=== PATIENT | female | born 1955 | race Caucasian/White ===

== ENCOUNTER 2022-05-03 19:08 | Emergency (ER) | payer OTHER ==
--- NOTE | 2022-05-03 19:21 | ERPHSYRPT ---
- History of Present Illness Time Seen by Provider: 05/03/22 19:21 Source: patient Physician History: This 66-year-old white female patient who has a history of hypertension hyperlipidemia and is not diabetic but suffered both cat scratches and cat bites prior to arrival. It was her own home cat. She is concerned because the sites were showing evidence of welts. She wants to be placed on antibiotics. Quality: burning, painful Severity: mild Location: hands (Bilateral), extremities (Bilateral wrists and proximal forearms) Possible Causes: other (Cat bites and scratches) Allergies/Adverse Reactions: No Known Drug Allergies Allergy (Verified 05/03/22 19:14) Home Medications: Citalopram Hydrobromide [Celexa] 40 mg PO DAILY 02/16/12 [History] Clonidine HCl 0.1 mg [Clonidine 0.1 mg Tablet] 0.1 mg PO BID 05/03/22 [History] Fluticasone/Umeclidin/Vilanter [Trelegy Ellipta 100-62.5-25] 1 puff IH DAILY 05/03/22 [History] Lansoprazole 15 mg PO DAILY 05/03/22 [History] Simvastatin 20Mg [Zocor 20Mg] 20 mg PO DAILY 05/03/22 [History] Zinc Gluconate [Zinc] 50 mg PO DAILY 05/03/22 [History] Hx Tetanus, Diphtheria Vaccination/Date Given: Yes Hx Influenza Vaccination/Date Given: Yes Hx Pneumococcal Vaccination/Date Given: No Travel Risk - International Travel Have you traveled outside of the country in past 3 weeks: No - Coronavirus Screening Are you exhibiting any of the following symptoms?: No Close contact with a COVID-19 positive Pt in past 14-21 Days: No - Review of Systems Constitutional: No Symptoms Eyes: No Symptoms Ears, Nose, & Throat: No Symptoms Respiratory: No Symptoms Cardiac: No Symptoms Abdominal/Gastrointestinal: No Symptoms Genitourinary Symptoms: No Symptoms Musculoskeletal: No Symptoms Skin: Other (Bilateral hands wrist and forearm cat scratches and cat bites) Neurological: No Symptoms Psychological: No Symptoms Endocrine: No Symptoms Hematologic/Lymphatic: No Symptoms Immunological/Allergic: No Symptoms All Other Systems: Reviewed and Negative - Past Medical History Pertinent Past Medical History: Yes Neurological History: No Pertinent History ENT History: No Pertinent History Cardiac History: High Cholesterol, Hypertension Respiratory History: Other Endocrine Medical History: No Pertinent History Musculoskeletal History: No Pertinent History GI Medical History: Gallbladder Disease History: No Pertinent History Psycho-Social History: Anxiety Female Reproductive Disorders: No Pertinent History - Past Surgical History Past Surgical History: Yes Neuro Surgical History: No Pertinent History Cardiac: No Pertinent History Respiratory: Other Gastrointestinal: Cholecystectomy Genitourinary: No Pertinent History Musculoskeletal: No Pertinent History Female Surgical History: Tubal Ligation Other Surgical History: right lobectomy, tubal, gallbladder - Social History Smoking Status: Former smoker How long have you smoked: 10yrs Exposure to second hand smoke: No Alcohol Use: Socially Drug Use: none Patient Lives Alone: No Significant Family History: hypertension - Nursing Vital Signs Nursing Vital Signs: Initial Vital Signs Temperature 97.4 F 05/03/22 19:18 Pulse Rate 73 05/03/22 19:18 Respiratory Rate 18 05/03/22 19:18 Blood Pressure 215/102 05/03/22 19:18 O2 Sat by Pulse Oximetry 100 05/03/22 19:18 Pain Scale Pain Intensity 3 - Physical Exam General Appearance: no apparent distress, alert, anxiety Eye Exam: PERRL/EOMI, eyes nml inspection Ears, Nose, Throat Exam: normal ENT inspection, moist mucous membranes Neck Exam: normal inspection, non-tender, supple, full range of motion Respiratory Exam: normal breath sounds, lungs clear, airway intact, No chest tenderness, No respiratory distress Cardiovascular Exam: regular rate/rhythm, normal heart sounds, normal peripheral pulses Gastrointestinal/Abdomen Exam: soft, normal bowel sounds, No tenderness Pelvic Exam: not done Rectal Exam: not done Extremity Exam: normal inspection, normal range of motion, pelvis stable Neurologic Exam: alert, oriented x 3, cooperative, 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 No active bleeding) Lymphatic Exam: No adenopathy SpO2 Interpretation: normal O2 Delivery: Room Air - Progress Progress: unchanged Counseled pt/family regarding: diagnosis, need for follow-up - Departure Departure Disposition: Home Clinical Impression: Cat scratch of hand, Cat scratch of forearm, Cat bite of multiple sites of hand and wrist Condition: Stable Critical Care Time: No Referrals: [facility] LAWS NP [Primary Care Provider] - Follow up/PCP as directed Additional Instructions: Do not use ointments or lotions. Keep the sites clean washing them 2 times a day with soap and water. Take your antibiotics with food. Follow-up with your primary care physician for further evaluation management. Prescriptions: Amoxicillin/Potassium Clav [Augmentin 500-125 Tablet] 1 each PO TID #15 tablet Ciprofloxacin [Cipro 500 MG] 500 mg PO BID #10 tablet
[2022-05-03 19:31] VITALS: O2SAT 100
[2022-05-03] MEDS ORDERED: Augmentin 500-125 Tablet PO ONE (19:48)
[2022-05-03] MEDS ORDERED: Levofloxacin 500 MG Tablet PO ONE (19:48)
[2022-05-03] MEDS ORDERED: Adacel Vial IM ONE ×2 (19:53→19:57)
[2022-05-03] MEDS ORDERED: Levofloxacin 500 MG Tablet ONE (19:56)
[2022-05-03] MEDS ORDERED: Augmentin 500-125 Tablet ONE (19:56)
[2022-05-03 20:13] VITALS: BP 189/98; PULSE 68
== END 2022-05-03 20:14 | disposition home or self-care (01) ==
LOC: ED 19:08
DX: S60.572A Other superficial bite of hand of left hand, initial encounter (principal); S60.571A Other superficial bite of hand of right hand, initial encounter; S60.872A Other superficial bite of left wrist, initial encounter; S60.871A Other superficial bite of right wrist, initial encounter; W55.01XA Bitten by cat, initial encounter; S60.512A Abrasion of left hand, initial encounter; S60.511A Abrasion of right hand, initial encounter; S50.812A Abrasion of left forearm, initial encounter; S50.811A Abrasion of right forearm, initial encounter; W55.03XA Scratched by cat, initial encounter; I10 Essential (primary) hypertension; E78.5 Hyperlipidemia, unspecified; Z79.899 Other long term (current) drug therapy
CPT/HCPCS: 90471; 90715; 99282; A9270-GY

== ENCOUNTER 2023-03-09 09:45 | Emergency (ER) | payer MEDICARE ==
--- NOTE | 2023-03-09 09:51 | ERPHSYRPT ---
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 The "flu" has been traveling throughout the their home and family members. Patient has been coughing but not a tremendous amount. She was having body aches and pains and yesterday did take 4 doses of regular strength aspirin which she does not normally take. However when she was coughing yesterday and again today she noticed blood in her sputum. She has no bleeding disorders. She denies clotting disorders. She has no liver disease. Patient denies chest pain. Patient has a history of hypertension, hyperlipidemia, gastroesophageal reflux disease, depression, anxiety. She has not had any vomiting or diarrhea. She denies abdominal pain. Patient has had a right lung upper lobectomy in the past secondary to an empyema. Timing/Duration: week(s) (1 to 2 weeks), intermittent, worse Cough Quality/Degree: mild, blood streaked sputum Possible Cause: no prior episodes Modifying Factors: Improves With: nothing, coughing Associated Symptoms: cough, sore throat, No chest pain/soreness, No shortness of breath Allergies/Adverse Reactions: No Known Drug Allergies Allergy (Verified 03/09/23 10:05) Home Medications: Citalopram Hydrobromide [Celexa] 40 mg PO DAILY 02/16/12 [History] Clonidine HCl 0.1 mg [Clonidine 0.1 mg Tablet] 0.1 mg PO BID 05/03/22 [History] Fluticasone/Umeclidin/Vilanter [Trelegy Ellipta 100-62.5-25] 1 puff IH DAILY 05/03/22 [History] Lansoprazole 15 mg PO DAILY 05/03/22 [History] Simvastatin 20Mg [Zocor 20Mg] 20 mg PO DAILY 05/03/22 [History] Zinc Gluconate [Zinc] 50 mg PO DAILY 05/03/22 [History] Hx Tetanus, Diphtheria Vaccination/Date Given: Yes Hx Influenza Vaccination/Date Given: Yes Hx Pneumococcal Vaccination/Date Given: No Travel Risk - International Travel Have you traveled outside of the country in past 3 weeks: No - Coronavirus Screening Are you exhibiting any of the following symptoms?: Yes Symptoms: Cough: New Onset, Headaches/Body Aches/Fatigue Close contact with a COVID-19 positive Pt in past 14-21 Days: No - Vaccine Status Have you recieved a Covid-19 vaccination: Yes 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[employer] - Vaccination Dates Date of 2cond Vaccination (if applicable): 2019 - Review of Systems Constitutional: No Symptoms Eyes: No Symptoms Ears, Nose, & Throat: No Symptoms, Throat Pain Respiratory: Cough Cardiac: No Symptoms Abdominal/Gastrointestinal: No Symptoms Genitourinary Symptoms: No Symptoms Musculoskeletal: Arthralgias, Myalgias Skin: No Symptoms Neurological: No Symptoms Psychological: No Symptoms Endocrine: No Symptoms Hematologic/Lymphatic: No Symptoms Immunological/Allergic: No Symptoms All Other Systems: Reviewed and Negative - Past Medical History Pertinent Past Medical History: Yes Neurological History: No Pertinent History ENT History: No Pertinent History Cardiac History: High Cholesterol, Hypertension Respiratory History: Other Endocrine Medical History: No Pertinent History Musculoskeletal History: No Pertinent History GI Medical History: Gallbladder Disease History: No Pertinent History Psycho-Social History: Anxiety Female Reproductive Disorders: No Pertinent History - Past Surgical History Past Surgical History: Yes Neuro Surgical History: No Pertinent History Cardiac: No Pertinent History Respiratory: Other Gastrointestinal: Cholecystectomy Genitourinary: No Pertinent History Musculoskeletal: No Pertinent History Female Surgical History: Tubal Ligation Other Surgical History: right lobectomy, tubal, gallbladder - Social History Smoking Status: Former smoker How long have you smoked: 10yrs Exposure to second hand smoke: No Alcohol Use: Socially Drug Use: none Patient Lives Alone: No Significant Family History: hypertension - Nursing Vital Signs Nursing Vital Signs: Initial Vital Signs Temperature 98.3 F 03/09/23 10:05 Pulse Rate 85 03/09/23 10:05 Respiratory Rate 18 03/09/23 10:05 Blood Pressure 144/79 03/09/23 10:05 O2 Sat by Pulse Oximetry 94 L 03/09/23 10:05 Pain Scale Pain Intensity 0 - Physical Exam General Appearance: no apparent distress, alert, anxiety Eye Exam: PERRL/EOMI, eyes nml inspection Ears, Nose, Throat Exam: normal ENT inspection, moist mucous membranes Neck Exam: normal inspection, non-tender, supple, full range of motion Respiratory Exam: normal breath sounds, lungs clear, airway intact, No chest tenderness, No respiratory distress Cardiovascular Exam: regular rate/rhythm, normal heart sounds, normal peripheral pulses Gastrointestinal/Abdomen Exam: soft, normal bowel sounds, No tenderness Pelvic Exam: not done Rectal Exam: not done Back Exam: normal inspection Extremity Exam: normal inspection, normal range of motion, pelvis stable Neurologic Exam: alert, oriented x 3, cooperative, deckhand 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 II-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 nml as tested, normal mood/affect, nml cerebellar function, nml station & gait, sensation nml Skin Exam: normal color, warm, dry Lymphatic Exam: No adenopathy SpO2 Interpretation: normal O2 Delivery: Room Air - Course Nursing assessment & vital signs reviewed: Yes Ordered Tests: Active Orders 24 hr Category Date Time Status CHEST 1 VIEW (PORTABLE) Stat Exams 03/09/23 10:19 Completed CHEST WITH CONTRAST [CT] Stat Exams 03/09/23 11:12 Completed BMP Stat Lab 03/09/23 10:30 Completed CBC W DIFF Stat Lab 03/09/23 10:30 Completed D-DIMER QUANTITATIVE Stat Lab 03/09/23 10:30 Completed Manual Differential NC Stat Lab 03/09/23 10:30 Completed PROTIME WITH INR Stat Lab 03/09/23 10:30 Completed Medication Summary Discontinued Medications Generic Name Dose Route Start Last Admin Trade Name Freq PRN Reason Stop Dose Admin Sodium Chloride 500 mls @ 500 mls/hr 03/09/23 11:12 03/09/23 12:32 Sodium Chloride 0.9% 500 Ml IV 03/09/23 12:11 Infused .Q1H ONE Infusion Sodium Chloride Confirm 03/09/23 11:27 Sodium Chloride 0.9% 500 Ml Administered 03/09/23 11:28 Dose 500 mls @ ud IV .STK-MED ONE Ceftriaxone Sodium/Dextrose 1 g in 50 mls @ 100 mls/hr 03/09/23 11:44 03/09/23 12:32 Rocephin 1 Gm-D5w 50 Ml Bag IV 03/09/23 12:13 Infused STAT STA Infusion Ceftriaxone Sodium/Dextrose Confirm 03/09/23 12:00 Rocephin 1 Gm-D5w 50 Ml Bag Administered 03/09/23 12:01 Dose 1 g in 50 mls @ ud IV .STK-MED ONE Lab/Rad Data: Laboratory Result Diagrams 03/09/23 10:30 03/09/23 10:30 Laboratory Results 03/09/23 03/09/23 03/09/23 Range/Units 11:08 10:30 10:30 WBC (4.0-10.5) x10^3/uL RBC (4.1-5.4) x10^6/uL Hgb (12.0-16.0) g/dL Hct (35-47) % MCV (78-100) fL MCH (26-32) pg MCHC (32-36) g/dL RDW (11.5-14.0) % Plt Count (150-450) x10^3/uL MPV (7.5-11.0) fL Segmented Neutrophils (36.0-66.0) % Lymphocytes (Manual) (24-44) % Toxic Granulation Platelet Estimate (NORMAL) RBC Morphology PT 10.6 (9.4-12.5) SECONDS INR 0.97 (0.8-3.0) D-Dimer 0.90 H* (0.0-0.50) mg/L Sodium (137-145) mmol/L Potassium (3.5-5.1) mmol/L Chloride (98-107) mmol/L Carbon Dioxide (22-30) mmol/L Anion Gap (5-15) MEQ/L BUN (7-17) mg/dL Creatinine (0.52-1.04) mg/dL Estimated GFR ML/MIN Glucose (74-106) mg/dL Calcium (8.4-10.2) mg/dL Influenza Type A Ag NEGATIVE (NEGATIVE) Influenza Type B Ag NEGATIVE (NEGATIVE) RSV (PCR) NEGATIVE (NEGATIVE) SARS-CoV-2 (PCR) NEGATIVE (NEGATIVE) Group A Strep Antibody NOT DETECTED (NEGATIVE) 03/09/23 03/09/23 Range/Units 10:30 10:30 WBC 12.4 H (4.0-10.5) x10^3/uL RBC 3.96 L (4.1-5.4) x10^6/uL Hgb 12.4 (12.0-16.0) g/dL Hct 37.3 (35-47) % MCV 94.2 (78-100) fL MCH 31.3 (26-32) pg MCHC 33.2 (32-36) g/dL RDW 13.1 (11.5-14.0) % Plt Count 222 (150-450) x10^3/uL MPV 10.4 (7.5-11.0) fL Segmented Neutrophils 93 H (36.0-66.0) % Lymphocytes (Manual) 7 L (24-44) % Toxic Granulation 1+ Platelet Estimate NORMAL (NORMAL) RBC Morphology NORMAL PT (9.4-12.5) SECONDS INR (0.8-3.0) D-Dimer (0.0-0.50) mg/L Sodium 133 L (137-145) mmol/L Potassium 3.7 (3.5-5.1) mmol/L Chloride 104 (98-107) mmol/L Carbon Dioxide 18 L (22-30) mmol/L Anion Gap 15.0 (5-15) MEQ/L BUN 14 (7-17) mg/dL Creatinine 0.56 (0.52-1.04) mg/dL Estimated GFR 101.2 ML/MIN Glucose 119 H (74-106) mg/dL Calcium 9.3 (8.4-10.2) mg/dL Influenza Type A Ag (NEGATIVE) Influenza Type B Ag (NEGATIVE) RSV (PCR) (NEGATIVE) SARS-CoV-2 (PCR) (NEGATIVE) Group A Strep Antibody (NEGATIVE) - Progress Progress: improved, re-examined Air Movement: good Progress Note: 03/09/23 11:00 This patient's medical issue is 1 of moderate complexity. The level complex in the work-up performed is based on review of the patient's past medical history, review the patient's medication list, review of the patient's drug allergy list, history of present illness and physical findings on examination. Work-up in this patient includes chest x-ray, viral swabs, group A strep test, CBC, CMP, PT/INR and D-dimer test. 03/09/23 12:45 I reviewed and interpreted this patient's laboratory test results. Patient's D- dimer was elevated and because of her cough and hemoptysis and mild shortness of breath, we ordered a CT scan of the chest with contrast. Chest x-ray was interpreted by the radiologist and I reviewed the impression. There is stable right lung postsurgical changes. There is new left base infiltrate/atelectasis without consolidation or large effusion. CT scan of the chest with contrast was interpreted by the radiologist and I reviewed the impression. There is no evidence of pulmonary embolism. There is new left lower lobe consolidation/airspace disease. There is chronic right- sided postsurgical changes. Blood Culture(s) Obtained: Yes Antibiotics given: Yes Counseled pt/family regarding: lab results, diagnosis, need for follow-up, rad results Medical Desision Making - Diagnostic Testing Diagnostic test were ordered, analyzed, and reviewed by me: Yes Radiological Interpretation: Reviewed by me, Teleradiologist Report - Risk of complications The pt has a mod risk of morbidity or mortality based on: Need for prescription drug management - Departure Departure Disposition: Home Clinical Impression: Left lower lobe pneumonia Condition: Stable Critical Care Time: No Referrals: [facility] LAWS NP [Primary Care Provider] - Follow up/PCP as directed Additional Instructions: Take your medication as prescribed Follow-up with your primary care provider today, 03/09/2023, to obtain a follow-up appointment and further evaluation management in the next 3 to 5 days. Prescriptions: Prednisone 10 mg [Deltasone 10 mg] 10 mg PO TID #12 tablet Albuterol 8 gm Mdi Hfa [Ventolin Hfa MDI] 8 gm IH Q4H #1 unit Azithromycin 250 mg [Zithromax 250 MG TABLET] 250 mg PO ZPACK #6 tablet
[2023-03-09 10:16] VITALS: BP 144/79; TEMP 98.3
[2023-03-09 10:36] LABS: Hematocrit 37.3 % (35-47); Hemoglobin 12.4 g/dL (12.0-16.0); Mean Cell Volume 94.2 fL (78-100); Mean Corpuscular Hemoglobin 31.3 pg (26-32); Mean Corpuscular Hgb Concent. 33.2 g/dL (32-36); Mean Platelet Volume 10.4 fL (7.5-11.0); Platelet Count 222 x10^3/uL (150-450); Red Blood Count 3.96 x10^6/uL (4.1-5.4); Red Cell Distribution Width 13.1 % (11.5-14.0); White Blood Count 12.4 x10^3/uL (4.0-10.5)
--- NOTE | 2023-03-09 10:51 | XRAY ---
Indication: Hemoptysis. Comparison: April 23, 2021. Portable chest demonstrates stable right lung postsurgical changes with right lung volume loss. New left base infiltrate/atelectasis without consolidation/large effusion. Heart not enlarged. Bony thorax intact again with osteopenia and mild degenerative changes.
[2023-03-09 10:52] LABS: Calcium 9.3 mg/dL (8.4-10.2); Creatinine 1 0.56 mg/dL (0.52-1.04); EST GLOMERULAR FILTRATION RATE 101.2 ML/MIN; Potassium 3.7 mmol/L (3.5-5.1)
[2023-03-09 11:01] LABS: INR 0.97 (0.8-3.0); Lymphocytes 7 % (24-44); Neutrophils 93 % (36.0-66.0); PROTIME 10.6 SECONDS (9.4-12.5); Platelet Estimate NORMAL (NORMAL); Total Cells Counted 100; Toxic Granulation 1+
[2023-03-09 11:03] LABS: D-DIMER QUANTITATIVE 0.9 mg/L (0.0-0.50)
[2023-03-09 11:12] LABS: INFLUENZA A NEGATIVE (NEGATIVE); INFLUENZA B NEGATIVE (NEGATIVE); RESPIRATORY SYNCTIAL VIRUS NEGATIVE (NEGATIVE); SARS-CoV-2 Xpert Express NEGATIVE (NEGATIVE)
[2023-03-09] MEDS: Sodium Chloride 0.9% 500 ML 500 ML IV ONE (11:27)
[2023-03-09] MEDS ORDERED: Sodium Chloride 0.9% 500 ML 500 ML IV ONE (11:27)
[2023-03-09] MEDS ORDERED: ROCEPHIN 1 Gm-D5w 50 ml Bag** 1 G/50 ML IVPB IV ONE (12:00)
[2023-03-09] MEDS: ROCEPHIN 1 Gm-D5w 50 ml Bag** 1 G/50 ML IVPB IV STA (12:01)
--- NOTE | 2023-03-09 12:33 | XRAY ---
Indication: Hemoptysis. Elevated d-dimer. Partial right resection. Multiple contiguous images obtained through the chest using 100 cc Isovue 370 contrast and PE protocol. Comparison: CT chest without contrast February 05, 2022. Good opacification of the pulmonary arteries to include the lobar and segmental branches. No pulmonary embolus. Heart not enlarged. Aorta again mildly arteriosclerotic without aneurysm/dissection. No pathologic mediastinal/hilar lymphadenopathy. Stable small hiatal hernia. Lungs again demonstrates right upper/right middle lobectomy with right lung volume loss. Both lungs again demonstrates mild scattered peripheral fibrosis/scarring. Posterior left lower lobe demonstrates new consolidation/nonconsolidating airspace disease without effusion. Bony thorax intact again with minimal degenerative changes throughout the spine and partial right 2/5 rib resection. Limited upper abdomen demonstrates stable previous CT proven hepatic hemangiomas. Impression: 1. Negative pulmonary embolus. 2. New left lower lobe consolidating/air space disease as seen on same-day chest radiograph. 3. Again chronic findings including right lung postsurgical changes, pulmonary fibrosis/scarring, small hiatal hernia, arteriosclerotic disease, chronic bony findings, and hepatic hemangiomas.
[2023-03-09 13:37] VITALS: PULSE 80; RESP 18; O2SAT 93
== END 2023-03-09 13:42 | disposition home or self-care (01) ==
LOC: ED 09:45
DX: J18.9 Pneumonia, unspecified organism (principal); R04.2 Hemoptysis; M79.10 Myalgia, unspecified site; I10 Essential (primary) hypertension; E78.5 Hyperlipidemia, unspecified; Z79.52 Long term (current) use of systemic steroids; Z79.899 Other long term (current) drug therapy
CPT/HCPCS: 0241U; 36000; 36415; 71045; 71260; 80048; 85025; 85379; 85610; 87651; 96365; 99284; J0696

== ENCOUNTER 2023-04-08 12:59 | Emergency (ER) | payer MEDICARE ==
--- NOTE | 2023-04-08 13:39 | ERPHSYRPT ---
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 She held onto the child but in order to protect the child she fell onto her right shoulder and she felt a snap/pop sensation. She has had pain ever since. Patient has history of hypertension, hyperlipidemia, COPD and gastroesophageal reflux disease. She did not hit her head. She has no neck pain. She has no headache. Occurred: just prior to arrival Method of Injury: fell Quality: constant, aching Severity of Pain-Max: mild (To moderate) Severity of Pain-Current: mild (To moderate) Extremities Pain Location: shoulder: right Modifying Factors: Improves With: movement Associated Symptoms: none Allergies/Adverse Reactions: No Known Drug Allergies Allergy (Verified 04/08/23 13:31) Home Medications: Citalopram Hydrobromide [Celexa] 40 mg PO DAILY 02/16/12 [History] Clonidine HCl 0.1 mg [Clonidine 0.1 mg Tablet] 0.1 mg PO BID 05/03/22 [History] Fluticasone/Umeclidin/Vilanter [Trelegy Ellipta 100-62.5-25] 1 puff IH DAILY 05/03/22 [History] Lansoprazole 15 mg PO DAILY 05/03/22 [History] Simvastatin 20Mg [Zocor 20Mg] 20 mg PO DAILY 05/03/22 [History] Zinc Gluconate [Zinc] 50 mg PO DAILY 05/03/22 [History] Hx Tetanus, Diphtheria Vaccination/Date Given: Yes Hx Influenza Vaccination/Date Given: Yes Hx Pneumococcal Vaccination/Date Given: No Travel Risk - International Travel Have you traveled outside of the country in past 3 weeks: No - Coronavirus Screening Are you exhibiting any of the following symptoms?: No Close contact with a COVID-19 positive Pt in past 14-21 Days: No - Vaccine Status Have you recieved a Covid-19 vaccination: Yes 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[employer] - Vaccination Dates Date of 2cond Vaccination (if applicable): 2019 - Review of Systems Constitutional: No Symptoms Eyes: No Symptoms Ears, Nose, & Throat: No Symptoms Respiratory: No Symptoms Cardiac: No Symptoms Abdominal/Gastrointestinal: No Symptoms Genitourinary Symptoms: No Symptoms Musculoskeletal: Fall (Right shoulder from standing position), Injury Skin: No Symptoms Neurological: No Symptoms Psychological: No Symptoms Endocrine: No Symptoms Hematologic/Lymphatic: No Symptoms Immunological/Allergic: No Symptoms All Other Systems: Reviewed and Negative - Past Medical History Pertinent Past Medical History: Yes Neurological History: No Pertinent History ENT History: No Pertinent History Cardiac History: High Cholesterol, Hypertension Respiratory History: Other Endocrine Medical History: No Pertinent History Musculoskeletal History: No Pertinent History GI Medical History: Gallbladder Disease History: No Pertinent History Psycho-Social History: Anxiety Female Reproductive Disorders: No Pertinent History - Past Surgical History Past Surgical History: Yes Neuro Surgical History: No Pertinent History Cardiac: No Pertinent History Respiratory: Other Gastrointestinal: Cholecystectomy Genitourinary: No Pertinent History Musculoskeletal: No Pertinent History Female Surgical History: Tubal Ligation Other Surgical History: right lobectomy, tubal, gallbladder - Social History Smoking Status: Former smoker How long have you smoked: 10yrs Exposure to second hand smoke: No Alcohol Use: Socially Drug Use: none Patient Lives Alone: No Significant Family History: hypertension - Nursing Vital Signs Nursing Vital Signs: Initial Vital Signs Temperature 97 F 04/08/23 13:32 Pulse Rate 80 04/08/23 13:32 Respiratory Rate 18 04/08/23 13:32 Blood Pressure 172/74 04/08/23 13:32 O2 Sat by Pulse Oximetry 99 04/08/23 13:32 Pain Scale Pain Intensity 9 - Physical Exam General Appearance: no apparent distress, alert, anxiety Eyes, Ears, Nose, Throat Exam: normal ENT inspection, moist mucous membranes Neck Exam: normal inspection, non-tender, supple, full range of motion Cardiovascular/Respiratory Exam: chest non-tender, no respiratory distress Abdominal Exam: non-tender Back Exam: normal inspection, normal range of motion, No CVA tenderness, No vertebral tenderness Shoulder Exam: normal inspection, no evidence of injury, limited ROM (Right shoulder), soft tissue tenderness (Right shoulder) Elbow/Forearm Exam: normal inspection, non-tender, no evidence of injury, normal ROM Wrist Exam: normal inspection, non-tender, no evidence of injury, normal ROM Hand Exam: normal inspection, non-tender, no evidence of injury, normal ROM Neuro/Tendon Exam: normal sensation, normal motor functions, normal tendon functions, responds to pain, no evidence tendon injury Mental Status Exam: alert, oriented x 3, cooperative Skin Exam: normal color, warm, dry SpO2 Interpretation: normal O2 Delivery: Room Air - Course Nursing assessment & vital signs reviewed: Yes Ordered Tests: Active Orders 24 hr Category Date Time Status Sling Application STAT Care 04/08/23 14:31 Active SHOULDER Stat Exams 04/08/23 13:47 Taken - Progress Progress: pain not gone completely Progress Note: 04/08/23 14:07 This patient's medical issue is 1 of low complexity. The level complex in the workup performed is based on review the patient's past medical history, review the patient's medication list, review the patient drug allergy list, history present illness and physical findings on examination. This patient drove herself into the emergency room at the hospital. Workup in this patient includes x-ray of the right shoulder. We will also place her in a sling. 04/08/23 14:32 I interpreted the x-ray of the right shoulder. There is no evidence of any acute fracture or dislocation. Counseled pt/family regarding: diagnosis, need for follow-up, rad results Medical Desision Making - Diagnostic Testing Diagnostic test were ordered, analyzed, and reviewed by me: Yes Radiological Interpretation: Interpreted by me - Risk of complications The pt has a mod risk of morbidity or mortality based on: Need for prescription drug management - Departure Departure Disposition: Home Clinical Impression: Right shoulder pain Condition: Stable Critical Care Time: No Referrals: [facility] NP [Primary Care Provider] - Follow up/PCP as directed Additional Instructions: Ice pack to tender area 3 times a day for the next 48 hours. Wear sling for comfort. Add ibuprofen 600 mg with food 3 times a day to help with pain control. Call your primary care provider today, 04/08/2023, to make arrangements for further evaluation management and/or referral to orthopedic clinic/surgeon. Prescriptions: Oxycodone HCl/Acetaminophen [Percocet 5-325 mg Tablet] 1 each PO Q8H PRN PRN #6 tablet MDD 3 PRN Reason: Moderate To Severe Pain
[2023-04-08 13:53] VITALS: RESP 18; TEMP 97
[2023-04-08 15:21] VITALS: BP 174/85; PULSE 84; O2SAT 98
--- NOTE | 2023-04-09 11:35 | XRAY ---
Indication: Pain. Comparison: None 3 view right shoulder demonstrates osteopenia, mild AC degenerative arthropathy, surgical resection 2/5 ribs, and right axilla surgical clips. No other bony, articular, or soft tissue abnormalities.
== END 2023-04-08 15:25 | disposition home or self-care (01) ==
LOC: ED 12:59
DX: M25.511 Pain in right shoulder (principal); I10 Essential (primary) hypertension; E78.5 Hyperlipidemia, unspecified; Z79.891 Long term (current) use of opiate analgesic; Z79.899 Other long term (current) drug therapy
CPT/HCPCS: 73030; 99282

== ENCOUNTER 2023-07-07 14:50 | Emergency (ER) | payer MEDICARE ==
[2023-07-07] MEDS ORDERED: BABY ASPIRIN 81 MG CHEW ONE (15:15)
[2023-07-07] MEDS: BABY ASPIRIN 81 MG CHEW PO ONE (15:16)
[2023-07-07 15:29] LABS: Absolute Neutrophil Ct (ANC) 5.58 x10^3/uL (1.4-6.9); BASOPHIL % 0.7 % (0.0-0.4); Basophil (Absolute #) 0.06 x10^3/uL (0-0.4); Eosinophil % 1.4 % (0.00-5.0); Eosinophil (Absolute #) 0.12 x10^3/uL (0-0.5); Hematocrit 43.5 % (35-47); Hemoglobin 14.3 g/dL (12.0-16.0); IMMATURE GRAN # 0.08 x10^3u/L (0.00-0.03); IMMATURE GRAN % 0.9 % (0.00-0.4); Lymphocyte (Absolute #) 1.89 x10^3/uL (1.0-4.6); Mean Corpuscular Hemoglobin 31.6 pg (26-32); Mean Corpuscular Hgb Concent. 32.9 g/dL (32-36); Mean Platelet Volume 10.6 fL (7.5-11.0); Monocyte (Absolute #) 0.88 x10^3/uL (0.0-1.3); Monocytes % 10.2 % (0.0-12.0); Neutrophil % 64.8 % (36.0-66.0); Platelet Count 284 x10^3/uL (150-450); Red Blood Count 4.53 x10^6/uL (4.1-5.4); White Blood Count 8.6 x10^3/uL (4.0-10.5)
[2023-07-07 15:47] LABS: ANION GAP 13.2 MEQ/L (5-15); BILIRUBIN,TOTAL 0.3 mg/dL (0.2-1.3); Calcium 9.4 mg/dL (8.4-10.2); Creatinine 1 0.7 mg/dL (0.52-1.04); EST GLOMERULAR FILTRATION RATE 95.9 ML/MIN; Potassium 4.9 mmol/L (3.5-5.1)
[2023-07-07 15:50] LABS: ALBUMIN 4.3 g/dL (3.5-5.0); Total Protein 7.2 g/dL (6.3-8.2)
--- NOTE | 2023-07-07 16:28 | ERPHSYRPT ---
- History of Present Illness Time Seen by Provider: 07/07/23 15:00 Historian: patient Exam Limitations: no limitations Patient Subjective Stated Complaint: pt here for chest pain to center of chest with increase sob and sweating at times, states pain off and on for months getting more freuqent, Triage Nursing Assessment: pt alert, walked in, resp easy, skin w/d/p, occ dry cough, no edema noted, moves all ext well Physician History: 67-year-old female history of hypertension hyperlipidemia and former smoker presents to emergency department for evaluation of substernal chest pain that is been intermittent for several months. Pain is becoming more frequent and more intense. Patient states pain is not associated with shortness of breath and diaphoresis. Symptoms worse with exertion. Symptoms improved with rest. No associated nausea or vomiting. No trauma no fever. Patient denies history of the same. Patient otherwise feels well. She voices no other complaints or concerns at this time. Portions of this note were created with voice recognition technology. There may be grammatical, spelling, punctuation or sound alike errors Timing/Duration: today Activities at Onset: none Quality: aching Location: substernal Chest Pain Radiation: no radiation Severity of Pain-Max: moderate Severity of Pain-Current: mild Modifying Factors: Improves With: exertion Associated Symptoms: other (Diaphoresis) Prior Chest Pain/Cardiac Workup: no prior chest pain Nitro Today/Relief: no nitro taken today Aspirin Treatment Today: no aspirin today Allergies/Adverse Reactions: No Known Drug Allergies Allergy (Verified 07/07/23 14:51) Home Medications: Clonidine HCl 0.1 mg [Clonidine 0.1 mg Tablet] 0.1 mg PO BID 05/03/22 [History] Fluticasone/Umeclidin/Vilanter [Trelegy Ellipta 100-62.5-25] 1 puff IH DAILY 05/03/22 [History] Lansoprazole 15 mg PO DAILY 05/03/22 [History] Simvastatin 20Mg [Zocor 20Mg] 20 mg PO DAILY 05/03/22 [History] Hx Tetanus, Diphtheria Vaccination/Date Given: Yes Hx Influenza Vaccination/Date Given: Yes Hx Pneumococcal Vaccination/Date Given: Yes Immunizations Up to Date: Yes Travel Risk - International Travel Have you traveled outside of the country in past 3 weeks: No - Coronavirus Screening Are you exhibiting any of the following symptoms?: No Close contact with a COVID-19 positive Pt in past 14-21 Days: No - Vaccine Status Have you recieved a Covid-19 vaccination: Yes 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[employer] - Vaccination Dates Date of 2cond Vaccination (if applicable): 2019 - Review of Systems Constitutional: No Symptoms, No Fever, No Chills Eyes: No Symptoms Ears, Nose, & Throat: No Symptoms Respiratory: No Symptoms, No Cough, No Dyspnea Cardiac: No Symptoms, No Chest Pain, No Edema, No Syncope Abdominal/Gastrointestinal: No Symptoms, No Abdominal Pain, No Nausea, No Vomiting, No Diarrhea Genitourinary Symptoms: No Symptoms, No Dysuria Musculoskeletal: No Symptoms, No Back Pain, No Neck Pain Skin: No Symptoms, No Rash Neurological: No Symptoms, No Dizziness, No Focal Weakness, No Sensory Changes Psychological: No Symptoms Endocrine: No Symptoms Hematologic/Lymphatic: No Symptoms Immunological/Allergic: No Symptoms All Other Systems: Reviewed and Negative - Past Medical History Pertinent Past Medical History: Yes Neurological History: No Pertinent History ENT History: No Pertinent History Cardiac History: High Cholesterol, Hypertension Respiratory History: Pneumonia, Other Endocrine Medical History: No Pertinent History Musculoskeletal History: No Pertinent History GI Medical History: Gallbladder Disease History: No Pertinent History Psycho-Social History: Anxiety Female Reproductive Disorders: No Pertinent History - Past Surgical History Past Surgical History: Yes Neuro Surgical History: No Pertinent History Cardiac: No Pertinent History Respiratory: Other Gastrointestinal: Cholecystectomy Genitourinary: No Pertinent History Musculoskeletal: No Pertinent History Female Surgical History: Tubal Ligation Other Surgical History: right lobectomy, tubal, gallbladder Significant Family History: hypertension - Social History Smoking Status: Former smoker How long have you smoked: 10yrs Exposure to second hand smoke: No Alcohol Use: Socially Drug Use: none Patient Lives Alone: No - Nursing Vital Signs Nursing Vital Signs: Initial Vital Signs Pulse Rate 81 07/07/23 14:55 Pain Scale Pain Intensity 4 - Physical Exam General Appearance: no apparent distress, alert Eye Exam: PERRL/EOMI, eyes nml inspection Ears, Nose, Throat Exam: normal ENT inspection, TMs normal, pharynx normal, moist mucous membranes Neck Exam: normal inspection, non-tender, supple, full range of motion Respiratory Exam: normal breath sounds, lungs clear, airway intact, No respiratory distress Cardiovascular Exam: regular rate/rhythm, normal heart sounds, normal peripheral pulses Gastrointestinal/Abdomen Exam: soft, normal bowel sounds, No tenderness, No mass Back Exam: normal inspection, No CVA tenderness, No vertebral tenderness Extremity Exam: normal inspection, normal range of motion Neurologic Exam: alert, oriented x 3, cooperative, normal mood/affect, sensation nml, No motor deficits Skin Exam: normal color, warm, dry Lymphatic Exam: No adenopathy SpO2 Interpretation: normal SpO2: 96 O2 Delivery: Room Air - Course Nursing assessment & vital signs reviewed: Yes EKG Interpreted by Me: RATE (81), Sinus Rhythm, NORMAL AXIS, NORMAL INTERVALS - CT Exams Chest CT Interpretation: Tele-radiologist Report (Negative for PE. Stable right upper right middle lobe and hepatic hemangiomas. No acute findings) Ordered Tests: Active Orders 24 hr Category Date Time Status Bus And Trolley Inspecting Dispatcher STAT Care 07/07/23 15:07 Active EKG-ER Only STAT Care 07/07/23 15:06 Active IV Insertion STAT Care 07/07/23 15:06 Active Pulse Oximetry (ED) STAT Care 07/07/23 15:06 Active CHEST WITH CONTRAST [CT] Stat Exams 07/07/23 16:17 Taken CBC W DIFF Stat Lab 07/07/23 15:22 Completed CMP Stat Lab 07/07/23 15:22 Completed D-DIMER QUANTITATIVE Stat Lab 07/07/23 15:22 Completed TROPONIN Q4H Lab 07/07/23 15:22 Completed TROPONIN Q4H Lab 07/07/23 18:15 Completed TROPONIN Q4H Lab 07/07/23 23:15 Ordered Transfer Order Routine Transfer 07/07/23 Ordered Medication Summary Discontinued Medications Generic Name Dose Route Start Last Admin Trade Name Foster PRN Reason Stop Dose Admin Aspirin 324 mg 07/07/23 15:11 07/07/23 15:16 Aspirin 81 Mg Tab.Chew PO 07/07/23 15:12 324 mg STAT ONE Administration Aspirin Confirm 07/07/23 15:15 Aspirin 81 Mg Tab.Chew Administered 07/07/23 15:16 Dose 324 mg .ROUTE .STK-MED ONE Lab/Rad Data: Laboratory Result Diagrams 07/07/23 15:22 07/07/23 15:22 Laboratory Results 07/07/23 07/07/23 07/07/23 Range/Units 18:15 15:22 15:22 WBC (4.0-10.5) x10^3/uL RBC (4.1-5.4) x10^6/uL Hgb (12.0-16.0) g/dL Hct (35-47) % MCV (78-100) fL MCH (26-32) pg MCHC (32-36) g/dL RDW (11.5-14.0) % Plt Count (150-450) x10^3/uL MPV (7.5-11.0) fL Gran % (36.0-66.0) % Immature Gran % (Auto) (0.00-0.4) % Nucleat RBC Rel Count (0.00-0.1) % Eos # (Auto) (0-0.5) x10^3/uL Immature Gran # (Auto) (0.00-0.03) x10^3u/L Absolute Lymphs (auto) (1.0-4.6) x10^3/uL Absolute Monos (auto) (0.0-1.3) x10^3/uL Absolute Nucleated RBC (0.00-0.01) x10^3u/L Lymphocytes % (24.0-44.0) % Monocytes % (0.0-12.0) % Eosinophils % (0.00-5.0) % Basophils % (0.0-0.4) % Absolute Granulocytes (1.4-6.9) x10^3/uL Basophils # (0-0.4) x10^3/uL D-Dimer 0.93 H* (0.0-0.50) mg/L Sodium (135-145) mmol/L Potassium (3.5-5.1) mmol/L Chloride (98-107) mmol/L Carbon Dioxide (22-30) mmol/L Anion Gap (5-15) MEQ/L BUN (7-17) mg/dL Creatinine (0.52-1.04) mg/dL Estimated GFR ML/MIN Glucose (74-106) mg/dL Calcium (8.4-10.2) mg/dL Total Bilirubin (0.2-1.3) mg/dL AST (14-36) U/L ALT (0-35) U/L Alkaline Phosphatase (38-126) U/L Troponin I 0.041 H* 0.020 (0.000-0.034) ng/mL Serum Total Protein (6.3-8.2) g/dL Albumin (3.5-5.0) g/dL 07/07/23 07/07/23 Range/Units 15:22 15:22 WBC 8.6 (4.0-10.5) x10^3/uL RBC 4.53 (4.1-5.4) x10^6/uL Hgb 14.3 (12.0-16.0) g/dL Hct 43.5 (35-47) % MCV 96.0 (78-100) fL MCH 31.6 (26-32) pg MCHC 32.9 (32-36) g/dL RDW 13.0 (11.5-14.0) % Plt Count 284 (150-450) x10^3/uL MPV 10.6 (7.5-11.0) fL Gran % 64.8 (36.0-66.0) % Immature Gran % (Auto) 0.9 H (0.00-0.4) % Nucleat RBC Rel Count 0.0 (0.00-0.1) % Eos # (Auto) 0.12 (0-0.5) x10^3/uL Immature Gran # (Auto) 0.08 H (0.00-0.03) x10^3u/L Absolute Lymphs (auto) 1.89 (1.0-4.6) x10^3/uL Absolute Monos (auto) 0.88 (0.0-1.3) x10^3/uL Absolute Nucleated RBC 0.00 (0.00-0.01) x10^3u/L Lymphocytes % 22.0 L (24.0-44.0) % Monocytes % 10.2 (0.0-12.0) % Eosinophils % 1.4 (0.00-5.0) % Basophils % 0.7 (0.0-0.4) % Absolute Granulocytes 5.58 (1.4-6.9) x10^3/uL Basophils # 0.06 (0-0.4) x10^3/uL D-Dimer (0.0-0.50) mg/L Sodium 140 (135-145) mmol/L Potassium 4.9 (3.5-5.1) mmol/L Chloride 109 H (98-107) mmol/L Carbon Dioxide 23 (22-30) mmol/L Anion Gap 13.2 (5-15) MEQ/L BUN 16 (7-17) mg/dL Creatinine 0.70 (0.52-1.04) mg/dL Estimated GFR 95.9 ML/MIN Glucose 92 (74-106) mg/dL Calcium 9.4 (8.4-10.2) mg/dL Total Bilirubin 0.30 (0.2-1.3) mg/dL AST 24 (14-36) U/L ALT 24 (0-35) U/L Alkaline Phosphatase 63 (38-126) U/L Troponin I (0.000-0.034) ng/mL Serum Total Protein 7.2 (6.3-8.2) g/dL Albumin 4.3 (3.5-5.0) g/dL - Progress Progress: improved Air Movement: good Progress Note: 67-year-old female presents to our ED for evaluation of exertional chest pain diaphoresis and shortness of breath. D-dimer positive. CTA chest negative for PE. Initial troponin negative. Patient has significant cardiovascular risk factors. Patient will be admitted for cardiac rule out. Management discussed with hospitalist. Hospitalist accepts admission to observation at 6 PM. Plan of care discussed with patient. She agrees to admission to [facility] for further evaluation and treatment. Portions of this note were created with voice recognition technology. There may be grammatical, spelling, punctuation or sound alike errors Complexity problem addressed is moderate acute complicated No critical care time Complexity of data reviewed and analyzed is extensive. Test ordered test reviewed. Results analyzed and correlated clinically with history and physical examination. Management discussed with hospitalist who accepts admission to observation. Risk of complication and a risk morbidity/mortality of patient management is high. Patient requires hospitalization for further evaluation and treatment. Vital stable. Time spent admit patient is approximately 20 minutes. Plan of care established for shared decision making. No social determinants of health present impede follow-up. Portions of this note were created with voice recognition technology. There may be grammatical, spelling, punctuation or sound alike errors 07/07/23 18:42 Patient secondary opponent doubled from 0.020-0.041. Patient reassessed. No change in vitals. No change in intensity of chest pain. Patient resting comfortably. However in light of this elevated troponin we will transfer patient. Case discussed with transfer center at [facility] who accepts patient based on auto except. The accepting physician is Dr. Charles. Plan of care discussed with patient. She agrees to transfer to [facility] for further evaluation and treatment. Portions of this note were created with voice recognition technology. There may be grammatical, spelling, punctuation or sound alike errors 07/07/23 19:50 Patient accepted via auto except at 7:49 PM. Accepting physician is Dr. Charles. Plan of care discussed with patient. She agrees to admission to [facility] for further evaluation and treatment. Heparin bolus and drip initiated. Patient has no active chest pain. We will hold off on nitroglycerin at this time. 07/07/23 20:02 Blood Culture(s) Obtained: No Antibiotics given: No Discussed with Dr.: Other Will see patient in: hospital (observation) Counseled pt/family regarding: lab results, diagnosis, rad results - Departure Departure Disposition: Observation Clinical Impression: Chest pain, ACS (acute coronary syndrome), Multiple hemangiomas, Elevated troponin, NSTEMI (non-ST elevated myocardial infarction) Condition: Stable Critical Care Time: No Referrals: [facility] NP [Primary Care Provider] - Follow up/PCP as directed
[2023-07-07 18:06] VITALS: O2SAT 96
[2023-07-07 20:15] VITALS: BP 143/87; PULSE 71; RESP 16
[2023-07-07 20:18] LABS: INR 0.89 (0.8-3.0); PROTIME 9.8 SECONDS (9.4-12.5); PTT 25.6 SECONDS (25.1-36.5)
[2023-07-07] MEDS ORDERED: HEPARIN 5000 UNITS/0.5 ML (HIGH RISK MED) ONE (20:23)
[2023-07-07] MEDS ORDERED: Heparin 25,000 units/D5W: USE ORDER SET PROTO 25,000 UNITS/250 ML BAG IV ONE (20:24)
[2023-07-07] MEDS: HEPARIN 5000 UNITS/0.5 ML (HIGH RISK MED) IV STA (20:26)
[2023-07-07] MEDS: Heparin 25,000 units/D5W: USE ORDER SET PROTO 25,000 UNITS/250 ML BAG IV SCH (20:27)
--- NOTE | 2023-07-08 09:14 | XRAY ---
Indication: Chest pain. Elevated d-dimer. Pulmonary embolus. Multiple contiguous axial images obtained through the chest using 80 cc Isovue 370 contrast and PE protocol. Comparison: March 09, 2023 Good opacification of the pulmonary arteries to includes the lobar and segmental branches. No pulmonary embolus. Heart not enlarged. Aorta again mildly arteriosclerotic without aneurysm/dissection. No pathologic mediastinal/hilar lymphadenopathy. Lungs again demonstrates right upper/right middle lobectomy with right lung volume loss. There remains minimal scattered peripheral fibrosis/scarring. No suspicious pulmonary mass/nodule, infiltrate, or effusion. Bony thorax intact again with minimal degenerative changes throughout the spine and partial right 2/5 rib resection. Limited upper abdomen again demonstrates stable CT proven hepatic hemangiomas. Impression: 1. Continued negative pulmonary embolus. No new/acute cardiopulmonary abnormalities. 2. Again chronic findings including right lung postsurgical changes, pulmonary fibrosis/scarring, arteriosclerotic disease, chronic bony findings, and hepatic hemangiomas.
== END 2023-07-07 20:50 | disposition short-term general hospital (02) ==
LOC: ED 14:50
DX: I21.4 Non-ST elevation (NSTEMI) myocardial infarction (principal); I24.9 Acute ischemic heart disease, unspecified; R07.9 Chest pain, unspecified; D18.03 Hemangioma of intra-abdominal structures; D18.09 Hemangioma of other sites; R77.8 Other specified abnormalities of plasma proteins; I10 Essential (primary) hypertension; E78.5 Hyperlipidemia, unspecified; Z79.899 Other long term (current) drug therapy
CPT/HCPCS: 36000; 36415; 71260; 80053; 84484; 85025; 85379; 85610; 85730; 93005; 93041; 94760; 96374; 99285; J1644; A9270-GY

== ENCOUNTER 2024-05-11 20:28 | Day surgery (SDC) | payer MEDICARE, OTHER ==
--- NOTE | 2024-05-11 15:36 | ERPHSYRPT ---
- History of Present Illness Time Seen by Provider: 05/11/24 15:32 Source: patient, other ([facility] provider Anitra) Exam Limitations: no limitations Physician History: 68-year-old female presents for emergency department with a confirmed diagnosis of appendicitis. Patient went to [facility] earlier in the day with complaints of right-sided abdominal pain. The provider ordered labs and a CAT scan. CAT scan we will what appears to be an early appendicitis. [facility] did not contact general surgery. Patient was sent to our emergency room instead. Patient was also diagnosed with a urinary tract infection. Patient has already taken an oral dose of Keflex. Patient is still uncomfortable but declined pain medication. No trauma no fever no diarrhea no rash. Symptoms are mild to moderate in intensity. Pain described as an ache that is localized. No radi ation. Pain reproduced with palpation to the right mid to lower abdomen. Family at bedside. Patient voices no other complaints or concerns at this time. Outpatient labs completed. No indication for repeat labs at this time. For some odd reason I cannot pull up the labs on my end. I requested the provider at [facility] to fax the labs for review. Portions of this note were created with voice recognition technology. There may be grammatical, spelling, punctuation or sound alike errors Timing/Duration: today Severity: moderate Modifying Factors: Improves With: nothing Associated Symptoms: denies symptoms Allergies/Adverse Reactions: No Known Drug Allergies Allergy (Verified 05/11/24 15:11) Home Medications: Fluticasone/Umeclidin/Vilanter [Trelegy Ellipta 100-62.5-25] 1 puff IH DAILY 05/03/22 [History] Allopurinol 100 mg [Zyloprim 100 mg] 100 mg PO DAILY 05/11/24 [History] Aspirin [Low Dose Aspirin EC] 81 mg PO DAILY 05/11/24 [History] Clopidogrel Bisulfate [PLAVIX Tablet] 75 mg PO DAILY 05/11/24 [History] Ezetimibe 10 mg [Zetia 10 MG] 10 mg PO DAILY 05/11/24 [History] Furosemide 20 mg [Lasix 20 mg] 20 mg PO DAILY 05/11/24 [History] Metoprolol Tartrate [Lopressor] 100 mg PO BID 05/11/24 [History] Rosuvastatin Calcium [Crestor] 40 mg PO DAILY 05/11/24 [History] Venlafaxine HCl ER 75 mg [Effexor XR 75 MG] 75 mg PO DAILY 05/11/24 [History] cephALEXin 500 mg PO TID 05/11/24 [History] Hx Tetanus, Diphtheria Vaccination/Date Given: Yes Hx Influenza Vaccination/Date Given: Yes Hx Pneumococcal Vaccination/Date Given: Yes - Review of Systems Constitutional: No Symptoms, No Fever, No Chills Eyes: No Symptoms Ears, Nose, & Throat: No Symptoms Respiratory: No Symptoms, No Cough, No Dyspnea Cardiac: No Symptoms, No Chest Pain, No Edema, No Syncope Abdominal/Gastrointestinal: No Symptoms, No Abdominal Pain, No Nausea, No Vomiting, No Diarrhea Genitourinary Symptoms: No Symptoms, No Dysuria Musculoskeletal: No Symptoms, No Back Pain, No Neck Pain Skin: No Symptoms, No Rash Neurological: No Symptoms, No Dizziness, No Focal Weakness, No Sensory Changes Psychological: No Symptoms Endocrine: No Symptoms Hematologic/Lymphatic: No Symptoms Immunological/Allergic: No Symptoms All Other Systems: Reviewed and Negative - Past Medical History Pertinent Past Medical History: Yes Neurological History: No Pertinent History ENT History: No Pertinent History Cardiac History: High Cholesterol, Hypertension Respiratory History: Pneumonia, Other Endocrine Medical History: No Pertinent History Musculoskeletal History: No Pertinent History GI Medical History: Gallbladder Disease History: No Pertinent History Psycho-Social History: Anxiety Female Reproductive Disorders: No Pertinent History - Past Surgical History Past Surgical History: Yes Neuro Surgical History: No Pertinent History Cardiac: No Pertinent History Respiratory: Other Gastrointestinal: Cholecystectomy Genitourinary: No Pertinent History Musculoskeletal: No Pertinent History Female Surgical History: Tubal Ligation Other Surgical History: right lobectomy, tubal, gallbladder Significant Family History: hypertension - Social History Smoking Status: Former smoker How long have you smoked: 10yrs Exposure to second hand smoke: No Alcohol Use: Socially Drug Use: none Patient Lives Alone: No - Nursing Vital Signs Nursing Vital Signs: Initial Vital Signs Temperature 97.8 F 05/11/24 15:00 Pulse Rate 74 05/11/24 15:00 Respiratory Rate 17 05/11/24 15:00 Blood Pressure 173/104 05/11/24 15:00 O2 Sat by Pulse Oximetry 98 05/11/24 15:00 Pain Scale Pain Intensity 8 - Physical Exam General Appearance: no apparent distress, alert Eye Exam: PERRL/EOMI, eyes nml inspection Ears, Nose, Throat Exam: normal ENT inspection, pharynx normal, moist mucous membranes Neck Exam: normal inspection, non-tender, supple, full range of motion Respiratory Exam: normal breath sounds, lungs clear, airway intact, No respiratory distress Cardiovascular Exam: regular rate/rhythm, normal heart sounds, normal peripheral pulses Gastrointestinal/Abdomen Exam: soft, normal bowel sounds, tenderness (Right mid abdominal tenderness), No mass Back Exam: normal inspection, normal range of motion, No CVA tenderness, No vertebral tenderness Extremity Exam: normal inspection, normal range of motion, pelvis stable Neurologic Exam: alert, oriented x 3, cooperative, normal mood/affect, sensation nml, No motor deficits Skin Exam: normal color, warm, dry, No rash Lymphatic Exam: No adenopathy SpO2 Interpretation: normal SpO2: 98 O2 Delivery: Room Air - Course Nursing assessment & vital signs reviewed: Yes EKG Interpreted by Me: RATE (71), Sinus Rhythm, NORMAL AXIS, NORMAL INTERVALS, NORMAL QRS Ordered Tests: Active Orders 24 hr Category Date Time Status NPO Diet 05/11/24 16:55 Active Transfer Order Routine Transfer 05/11/24 Ordered Medication Summary Generic Name Dose Route Start Last Admin Trade Name Freq PRN Reason Stop Dose Admin Allopurinol 100 mg 05/12/24 10:00 Allopurinol 100 Mg Tablet PO 06/11/24 09:59 DAILY SHELLEY Aspirin 81 mg 05/12/24 10:00 Aspirin 81 Mg Tablet.Ec PO 06/11/24 09:59 DAILY SHELLEY Clopidogrel Bisulfate 75 mg 05/12/24 10:00 Clopidogrel Bisulfate 75 Mg Tablet PO 06/11/24 09:59 DAILY SHELLEY Ezetimibe 10 mg 05/12/24 10:00 Ezetimibe 10 Mg Tab PO 06/11/24 09:59 DAILY SHELLEY Furosemide 20 mg 05/12/24 10:00 Furosemide 20 Mg Tablet PO 06/11/24 09:59 DAILY SHELLEY Non-Formulary Medication 40 mg 05/12/24 10:00 Rosuvastatin Calcium [Crestor] PO 06/11/24 09:59 DAILY SHELLEY Non-Formulary Medication 100 mg 05/11/24 22:00 Metoprolol Tartrate [Lopressor] PO 06/10/24 21:59 BID SHELLEY Non-Formulary Medication 1 puff 05/12/24 10:00 Fluticasone/Umeclidin/Vilanter [Trelegy Ellipta 100-62.5-25] IH 06/11/24 09:59 DAILY SHELLEY Venlafaxine HCl 75 mg 05/12/24 10:00 Venlafaxine Hcl 75 Mg Extended Release Capsule PO 06/11/24 09:59 DAILY SHELLEY Discontinued Medications Generic Name Dose Route Start Last Admin Trade Name Foster PRN Reason Stop Dose Admin Albuterol Sulfate Confirm 05/11/24 19:53 Proair Hfa Mdi 8.5 Gm Administered 05/11/24 19:54 Dose 8.5 gm IH .STK-MED ONE Cefazolin Sodium Confirm 05/11/24 19:19 Cefazolin Sodium 1 Gm Vial Administered 05/11/24 19:20 Dose 2 g .ROUTE .STK-MED ONE Dexamethasone Sodium Phosphate Confirm 05/11/24 19:03 Dexamethasone Sodium Phosphate 4 Mg/Ml Vial Administered 05/11/24 19:04 Dose 4 mg .ROUTE .STK-MED ONE Dexmedetomidine/Sodium Chloride Confirm 05/11/24 19:03 Dexmedetomidine In 0.9 % Nacl 80 Mcg/20 Ml Vial Administered 05/11/24 19:04 Dose 80 mcg IV .STK-MED ONE Fentanyl Citrate Confirm 05/11/24 19:05 Fentanyl Citrate 100 Mcg/2 Ml* Vial Administered 05/11/24 19:06 Dose 100 mcg .ROUTE .STK-MED ONE Levofloxacin/Dextrose 500 mg in 100 mls @ 100 mls/hr 05/11/24 16:37 05/11/24 18:16 Levofloxacin 500mg/100ml D5w IV 05/11/24 17:36 Infused STAT STA Infusion Metronidazole 500 mg in 100 mls @ 200 mls/hr 05/11/24 16:37 05/11/24 17:21 Flagyl 500 Mg Ivpb IV 05/11/24 17:06 Infused STAT STA Infusion Metronidazole Confirm 05/11/24 16:43 Flagyl 500 Mg Ivpb Administered 05/11/24 16:44 Dose 500 mg in 100 mls @ ud IV .STK-MED ONE Levofloxacin/Dextrose Confirm 05/11/24 17:11 Levofloxacin 500mg/100ml D5w Administered 05/11/24 17:12 Dose 500 mg in 100 mls @ ud IV .STK-MED ONE Lidocaine HCl Confirm 05/11/24 19:18 Lidocaine - Mpf 2% 5 Ml Vial Administered 05/11/24 19:19 Dose 5 ml .ROUTE .STK-MED ONE Midazolam HCl Confirm 05/11/24 19:04 Midazolam Hcl 2 Mg/2 Ml Vial Administered 05/11/24 19:05 Dose 2 mg .ROUTE .STK-MED ONE Morphine Sulfate 4 mg 05/11/24 16:54 05/11/24 17:12 Morphine Sulfate 4 Mg/Ml Injection IV 05/11/24 16:55 4 mg STAT ONE Administration Morphine Sulfate Confirm 05/11/24 17:11 Morphine Sulfate 4 Mg/Ml Injection Administered 05/11/24 17:12 Dose 4 mg .ROUTE .STK-MED ONE Ondansetron HCl 4 mg 05/11/24 16:54 05/11/24 17:12 Ondansetron Hcl 4 Mg/2 Ml Vial IV 05/11/24 16:55 4 mg STAT ONE Administration Ondansetron HCl Confirm 05/11/24 17:10 Ondansetron Hcl 4 Mg/2 Ml Vial Administered 05/11/24 17:11 Dose 4 mg .ROUTE .STK-MED ONE Ondansetron HCl Confirm 05/11/24 19:03 Ondansetron Hcl 4 Mg/2 Ml Vial Administered 05/11/24 19:04 Dose 4 mg .ROUTE .STK-MED ONE Propofol Confirm 05/11/24 19:03 Propofol 200 Mg/20 Ml Vial Administered 05/11/24 19:04 Dose 200 mg IV .STK-MED ONE Rocuronium [place] Confirm 05/11/24 19:03 Rocuronium [place] 50 Mg/5 Ml Vial Administered 05/11/24 19:04 Dose 50 mg IV .STK-MED ONE Sugammadex Sodium Confirm 05/11/24 19:03 Sugammadex Sodium 200 Mg/2 Ml Vial Administered 05/11/24 19:04 Dose 200 mg IV .STK-MED ONE - Progress Progress: improved Progress Note: Case discussed with Dr. Wan at 5:54 PM. We discussed patient's history of a cardiac stent. Patient currently on Plavix. Dr. Wan will take patient to the OR today. Patient currently n.p.o. plan of care discussed with patient. She agrees to admission to [facility] for further evaluation and treatment. Case discussed with Dr. Mcduffie hospitalist who accepts admission to observation at 4:06 PM. Portions of this note were created with voice recognition technology. There may be grammatical, spelling, punctuation or sound alike errors 05/11/24 17:55 68-year-old female referred to our ED for an already diagnosed appendicitis. IV access obtained. Antibiotics infused. Patient maintained NPO. Case discussed with general surgery. Patient was sent to the operating room from our ED. Case discussed with hospitalist who accepts admission to observation. Complexity of problem addressed is moderate acute complicated no critical care time. Complex of data reviewed and analyzed is extensive. Test ordered test reviewed results analyzed and correlated clinically with history and physical exam. Management discussed with referring provider Anitra, nurse practitioner, Dr. Galarza general surgeon and hospitalist . Risk of complication and or risk of morbidity/mortality of patient management is high. Patient requires hospitalization/surgery for further evaluation and treatment. Vital stable. Time spent to admit patient approximately 20 minutes. Plan of care established for shared decision making. No social determinants of health present to impede follow-up. Portions of this note were created with voice recognition technology. There may be grammatical, spelling, punctuation or sound alike errors Counseled pt/family regarding: diagnosis - Departure Departure Disposition: Home Clinical Impression: Appendicitis, Abdominal pain Condition: Stable Critical Care Time: No Referrals: FINA LAWS NP [Primary Care Provider] - Follow up/PCP as directed
[2024-05-11] MEDS: FLAGYL 500 MG IVPB 500 MG/100 ML BAG IV STA (16:44)
[2024-05-11] MEDS: MORPHINE SULFATE 4 MG INJ IV ONE (17:12)
[2024-05-11] MEDS: Levofloxacin 500MG/100ML D5W 500 MG/100 ML BAG IV STA (17:12)
[2024-05-11] MEDS: Zofran 4 MG/2 ML VIAL IV ONE (17:12)
[~2024-05-11 20:28] MED LIST: ALBUTEROL/Proair Hfa MDI IH ONE; BRIDION 200MG/2ML IV ONE; DEXMEDETOMIDINE 80 MCG/20ML-NS IV ONE; FLAGYL 500 MG IVPB 500 MG/100 ML BAG IV ONE; KEFZOL 1 GM ONE; Levofloxacin 500MG/100ML D5W 500 MG/100 ML BAG IV ONE; MORPHINE SULFATE 4 MG INJ ONE; ROCURONIUM BROMIDE IV ONE; SUBLIMAZE 100 MCG/2 ML ONE; Versed 2 MG/2 ML Injection ONE; Xylocaine-Mpf 2% 5 Ml Vial ONE; Zofran 4 MG/2 ML VIAL ONE; dexAMETHasone sodium phosphate ONE; propofoL IV ONE
[2024-05-11] MEDS ORDERED: TYLENOL 325 MG PO PRN (20:39)
[2024-05-11] MEDS ORDERED: MORPHINE SULFATE 4 MG INJ IV PRN ×2 (20:39→21:53)
[2024-05-11] MEDS ORDERED: NORCO 5/325 MG PO PRN ×2 (20:39→21:53)
[2024-05-11] MEDS ORDERED: Zofran 4 MG/2 ML VIAL IV PRN ×2 (20:39→21:53)
[2024-05-11] MEDS ORDERED: Sodium Chloride 0.9% 1000 ML 1,000 ML ONE (21:48)
[2024-05-11] MEDS ORDERED: NON-FORMULARY ITEM (Metoprolol Tartrate [Lopressor] 100 MG Tablet) PO SCH ×2 (22:00)
[2024-05-11] MEDS ORDERED: Lopressor 50 MG PO SCH (22:00)
[2024-05-11] MEDS: Sodium Chloride 0.9% 1000 ML 1,000 ML IV SCH ×2 (22:02→22:14)
[2024-05-11] MEDS: Lopressor 50 MG PO SCH (22:13)
[2024-05-12] MEDS: TYLENOL 325 MG PO PRN (03:35)
[2024-05-12 05:21] LABS: Hematocrit 37.9 % (34.1-44.9); Hemoglobin 12.3 g/dL (11.2-15.7); Mean Cell Volume 93.8 fL (79.4-94.8); Mean Corpuscular Hemoglobin 30.4 pg (25.6-32.2); Mean Corpuscular Hgb Concent. 32.5 g/dL (32.2-35.5); Mean Platelet Volume 11.1 fL (9.4-12.3); Platelet Count 169 x10^3/uL (182-369); Red Blood Count 4.04 x10^6/uL (3.93-5.22)
[2024-05-12 05:39] LABS: Calcium 8.7 mg/dL (8.4-10.2); Creatinine 1 0.55 mg/dL (0.52-1.04); Potassium 4.6 mmol/L (3.5-5.1)
[2024-05-12 06:58] VITALS: BP 133/64; PULSE 57; RESP 16; TEMP 98.1; O2SAT 95
[2024-05-12] MEDS: LASIX 20 MG PO SCH (08:44)
[2024-05-12] MEDS: Effexor XR 75 MG PO SCH (08:44)
[2024-05-12] MEDS: ZYLOPRIM 100 MG PO SCH (08:45)
[2024-05-12] MEDS: ZOCOR 20MG PO SCH (08:45)
[2024-05-12] MEDS: Zetia 10 MG PO SCH (08:45)
[2024-05-12] MEDS: PLAVIX Tablet PO SCH (08:46)
[2024-05-12] MEDS: ECOTRIN 81 MG PO SCH (08:46)
[2024-05-12] MEDS ORDERED: MEDICATION INTERVENTION MC SCH (09:15)
[2024-05-12] MEDS ORDERED: Zetia 10 MG PO SCH ×2 (10:00)
[2024-05-12] MEDS ORDERED: LASIX 20 MG PO SCH ×2 (10:00)
[2024-05-12] MEDS ORDERED: NON-FORMULARY ITEM (Rosuvastatin Calcium [Crestor] 20 MG Tablet) PO SCH ×3 (10:00)
[2024-05-12] MEDS ORDERED: ZYLOPRIM 100 MG PO SCH ×2 (10:00)
[2024-05-12] MEDS ORDERED: NON-FORMULARY ITEM (Fluticasone/Umeclidin/Vilanter [Trelegy Ellipta 100-62.5-25] 1 EACH Bl IH SCH ×4 (10:00)
[2024-05-12] MEDS ORDERED: ECOTRIN 81 MG PO SCH ×2 (10:00)
[2024-05-12] MEDS ORDERED: PLAVIX Tablet PO SCH ×2 (10:00)
[2024-05-12] MEDS ORDERED: Effexor XR 75 MG PO SCH ×2 (10:00)
--- NOTE | 2024-05-12 13:15 | OP ---
SURGERY DATE/TIME: 05/11/[id number] BRIEF HISTORY: This is a 68-year-old female with about a day of abdominal pain on the right side with associated nausea. She has not vomited. This is new for her. She has no gallbladder anymore. She already had a cholecystectomy. Her white count is normal. No fevers. CT scan was done outpatient which showed a dilated appendix with mild fat stranding concerning for early acute appendicitis. Of note, she is on Plavix for heart stents, which she took this morning. I saw her in the ER. She did have some tenderness. I offered a laparoscopic appendectomy. Understanding risks and benefits associated with the procedure including an increased risk of bleeding given she is on Plavix, injury to adjacent structures and then need for possible further surgery, depending on what we found, she consents to the procedure understanding these risks and benefits associated. PREOPERATIVE DIAGNOSIS: Acute uncomplicated appendicitis. POSTOPERATIVE DIAGNOSIS: Acute uncomplicated appendicitis. PROCEDURE: Laparoscopic appendectomy. SURGEON: Brian Wan MD DESCRIPTION OF PROCEDURE AND FINDINGS: The patient was taken to the OR in stable condition and placed on table in supine position. IV anesthetic was administered and she was monitored for the duration of the procedure by the anesthesia department. She was intubated. The abdomen was prepped and draped in sterile fashion. Time-out was called. I insufflated the abdomen to 12 mm and pneumoperitoneum with a Veress needle at Perkins's point. I then, via this port, entered the abdomen with 12 mm trocar just cephalad to the umbilicus. The abdomen was then inspected. The entry was atraumatic. Ports were placed. She was placed into position. The appendix was identified. It was adherent to the retroperitoneum. There was some inflammation. The tip of it did appear inflamed especially, but it was not perforated. There was no gangrene and there was no pus. I elected to proceed with appendectomy. I divided the mesoappendix with a LigaSure device down to its base, and at its base I divided the appendix with a white load on Endo CHHAYA stapler. Hemostasis was confirmed. The appendix was removed with a bag and then 12 mm trocar site was closed with 0 Vicryl suture and suture passer. The abdomen was desufflated. Trocar sites were closed with 4-0 Vicryl and Steri-Strips. She tolerated the procedure surgery well. I spoke with family afterwards. All questions were answered.
== END 2024-05-12 10:45 | disposition home or self-care (01) ==
LOC: SDC 20:28 → ED 20:28 → MED SURG 20:28 → SDC 20:29
PROVIDERS: ATTEND Student in an Organized Health Care Education/Training Program
DX: K35.80 Unspecified acute appendicitis (principal); N39.0 Urinary tract infection, site not specified; E78.5 Hyperlipidemia, unspecified; I10 Essential (primary) hypertension; Z79.01 Long term (current) use of anticoagulants; Z79.899 Other long term (current) drug therapy
CPT/HCPCS: 36415; 80048; 85027; 96365; 96374; 96375; 99140; 99283; 99285; J0690; J1100; J1956; J2250; J2270; J2405; J2704; J3010; A9270-GY